=== PATIENT | male | born 1995 | race Caucasian/White ===

== ENCOUNTER 2017-06-23 20:46 | Emergency (ER) | payer BC ==
[2017-06-23 20:50] VITALS: BP 122/90; PULSE 88; RESP 18; TEMP 98.6; O2SAT 97
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
== END 2017-06-23 22:58 | disposition home or self-care (01) ==
DX: I86.1 Scrotal varices (principal); N43.3 Hydrocele, unspecified

== ENCOUNTER 2018-08-10 01:28 | Emergency (ER) | payer BC ==
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
[2018-08-10 04:18] VITALS: BP 122/62
== END 2018-08-10 04:20 | disposition home or self-care (01) ==
LOC: EDUNIT#
DX: S09.92XA Unspecified injury of nose, initial encounter (principal); S00.83XA Contusion of other part of head, initial encounter; M54.2 Cervicalgia; R04.0 Epistaxis; Y04.8XXA Assault by other bodily force, initial encounter; Y92.9 Unspecified place or not applicable; Y99.9 Unspecified external cause status; Y93.9 Activity, unspecified

== ENCOUNTER 2018-08-10 17:18 | Emergency (ER) | payer BC ==
[2018-08-10 17:26] VITALS: BP 141/83
[2018-08-10] MEDS ORDERED: ACETAMINOPHEN 325 MG TAB PO ONE (18:15)
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
== END 2018-08-10 19:51 | disposition home or self-care (01) ==
DX: M53.82 Other specified dorsopathies, cervical region (principal)